=== PATIENT | female | born 1960 | race Caucasian/White ===

== ENCOUNTER 2021-03-23 17:33 | Observation (INO) ==
[2021-03-23] MEDS ORDERED: Melatonin 3 MG TABLET PO PRN (23:56)
[2021-03-23] MEDS ORDERED: Naloxone 0.4 MG/ML INJ IVP PRN (23:56)
[2021-03-24] MEDS ORDERED: Dextrose Gel 15 GM/37.5 ML TUBE PO PRN ×2 (00:33)
[2021-03-24] MEDS ORDERED: *HR* Dextrose 50 % in Water (Syg) 50 ML SYRINGE IVP PRN (00:33)
[2021-03-24] MEDS ORDERED: D5% in Water 1,000 ML IVC PRN (00:33)
[2021-03-24] MEDS ORDERED: 0.9 % Sodium Chloride 1,000 ML IVC SCH ×2 (01:15→12:30)
[2021-03-24 04:49] LABS: Basophils % 0.2 %; Hematocrit 46.4 % (35.3-44.9); Hemoglobin 14.7 g/dL (11.5-15.4); Immature Granulocytes % 0.4 % (0-4); Immature Platelets 2.6 % (1.1-6.1); Lymphocytes # 0.5 K/mcL (0.6-4.6); Lymphocytes % 9.7 %; Mean Corpuscular HGB Conc 31.7 g/dL (31.6-35.5); Mean Corpuscular Hemoglobin 27.8 pg (28.0-33.3); Mean Corpuscular Volume 87.7 fL (83.0-100.0); Mean Platelet Volume 11.1 fL (9.4-12.4); Monocytes # 0.2 K/mcL (0.0-1.3); Monocytes % 4.3 %; Neutrophils # 4.6 K/mcL (1.6-8.9); Platelet Count 133 K/mcL (140-400); Red Blood Count 5.29 M/mcL (3.82-4.97); Red Cell Distribution Width 13.1 % (11.5-14.5); Segmented Neutrophils % 85.4 %; White Blood Count 5.4 K/mcL (4.3-11.1)
[2021-03-24 04:54] LABS: INR 1.1; Prothrombin Time 12.7 Seconds (9.4-12.1)
[2021-03-24 05:06] LABS: Albumin 4.3 g/dL (3.5-5.7); Albumin/Globulin Ratio 1.3 (1.1-2.2); Bilirubin,Total 0.3 mg/dL (0.3-1.0); Calcium 9.9 mg/dL (8.6-10.3); Globulin 3.3 g/dL (2.4-3.5); Magnesium 1.6 mg/dL (1.6-2.6); Phosphorous 3.3 mg/dL (2.7-4.5); Potassium 4.2 mEq/L (3.5-5.1); Total Protein 7.6 g/dL (6.4-8.9)
[2021-03-24] MEDS ORDERED: *HR* Enoxaparin 40 MG/0.4 ML SYRINGE SQ SCH (06:00)
[2021-03-24] MEDS: Insulin LISPRO 300 UNITS/3 ML VIAL SUBQ SCH ×3 (10:08→17:24)
[2021-03-24] MEDS: Insulin DETEMIR 100 UNIT/ML X5UNITS SUBQ SCH ×2 (10:09→20:11)
[2021-03-24] MEDS ORDERED: Acetaminophen 325 MG TABLET PO PRN (11:38)
[2021-03-24] MEDS ORDERED: Insulin LISPRO 300 UNITS/3 ML VIAL SUBQ SCH (21:00)
[2021-03-25 08:00] LABS: Basophils % 0.1 %; Hematocrit 44.7 % (35.3-44.9); Hemoglobin 15.1 g/dL (11.5-15.4); Immature Granulocytes % 0.4 % (0-4); Lymphocytes # 1.1 K/mcL (0.6-4.6); Lymphocytes % 15.7 %; Mean Corpuscular HGB Conc 33.8 g/dL (31.6-35.5); Mean Corpuscular Hemoglobin 28.7 pg (28.0-33.3); Mean Platelet Volume 10.8 fL (9.4-12.4); Monocytes # 0.4 K/mcL (0.0-1.3); Monocytes % 5.9 %; Neutrophils # 5.4 K/mcL (1.6-8.9); Platelet Count 181 K/mcL (140-400); Red Blood Count 5.26 M/mcL (3.82-4.97); Red Cell Distribution Width 13.1 % (11.5-14.5); Segmented Neutrophils % 77.9 %
[2021-03-25 08:13] LABS: BUN/Creatinine Ratio 54 (6-26); Blood Urea Nitrogen 45 mg/dL (6-20); Calcium 9.6 mg/dL (8.6-10.3); Carbon Dioxide 18 mEq/L (23-29); Chloride 105 mEq/L (98-107); Glucose 190 mg/dL (70-105); Osmolality,Calculated 297 (280-300); Potassium 3.8 mEq/L (3.5-5.1); Sodium 135 mEq/L (136-145); eGFR For African Americans > 60 (> 60); eGFR For Non-African Americans > 60 (> 60)
[2021-03-25] MEDS: Insulin LISPRO 300 UNITS/3 ML VIAL SUBQ SCH ×2 (09:35→12:15)
[2021-03-25] MEDS: Insulin DETEMIR 100 UNIT/ML X5UNITS SUBQ SCH (09:35)
[2021-03-25] MEDS ORDERED: Ondansetron ODT 4 MG TAB.RAPDIS SL ONE (09:43)
[2021-03-25 11:27] VITALS: BP 155/80; PULSE 83; TEMP 98.7; O2SAT 90
== END 2021-03-25 12:51 | disposition home or self-care (01) ==
LOC: 2ANU → SUATTDRO 23:56
PROVIDERS: ADMIT Family Medicine; ATTEND Student in an Organized Health Care Education/Training Program